=== PATIENT | male | born 1950 | race Caucasian/White ===

== ENCOUNTER 2017-09-20 20:08 | Emergency (ER) | payer OTHER, BC ==
[~2017-09-20] VITALS: Ht 188 cm; Wt 102.0 kg
[~2017-09-20 20:08] MED LIST: ASPI81TA25 PO; CLX/20 PO; LISI-725 PO
[2017-09-20 20:10] VITALS: TEMP 36.6; O2SAT 100; Ht 188 cm; Wt 102.0 kg
[2017-09-20] MEDS ORDERED: SODIUM CHLORIDE 0.9% 1000ML 1,000 ML IV STA (20:38)
--- NOTE | 2017-09-20 21:05 | DIAGNOSTIC IMAGING REPORT ---
CHEST ONE VIEW PORTABLE CLINICAL HISTORY: 66 years-old Male presenting with EVALUATE ALTERED MENTAL STATUS/WEAKNESS. TECHNIQUE: Portable upright AP view of the chest was obtained. COMPARISON: 12/22/2014. FINDINGS: Atherosclerosis of the aortic arch. Cardiac silhouette top normal in size. Minimal vague basilar opacities. No other focal infiltrate. No large effusion or pneumothorax. Degenerative changes of the thoracic spine. Partially visualized anterior cervical fusion hardware. IMPRESSION: 1. Minimal bibasilar opacities likely atelectasis. No commencing evidence of acute cardiopulmonary disease. Electronically signed by: Alfonso Weaver M.D. 09/20/2017 9:04 PM Dictated Date/Time: 09/20/2017 9:03 PM
[2017-09-20] MEDS ORDERED: ZCR40 PO (21:07)
[2017-09-20] MEDS ORDERED: MULT-506 PO (21:07)
[2017-09-20] MEDS ORDERED: LSN/10125 PO (21:07)
[2017-09-20 21:08] LABS: BASO % 0.4 %; BASO ABS # 0.03 K/uL (0-0.2); EOS % 1.4 %; EOS ABS # 0.11 K/uL (0-0.5); HEMATOCRIT 39.4 % (42-52); HEMOGLOBIN 13.6 g/dL (14.0-18.0); IG# 0.03 K/uL (0.00-0.02); LYMPH % 16.8 %; LYMPH ABS # 1.34 K/uL (1.2-3.4); MEAN CELL VOLUME 95.2 fL (80-100); MEAN CORPUSCULAR HEMOGLOBIN 32.9 pg (25-34); MEAN CORPUSCULAR HGB CONC 34.5 g/dl (32-36); MEAN PLATELET VOLUME 8.8 fL (7.4-10.4); MONO % 9.8 %; MONO ABS # 0.78 K/uL (0.11-0.59); NEUT % 71.2 %; NEUT ABS # 5.68 K/uL (1.4-6.5); PLATELET COUNT 277 K/uL (130-400); RED CELL DISTRIBUTION WIDTH CV 14.1 % (11.5-14.5); RED CELL DISTRIBUTION WIDTH SD 48.8 fL (36.4-46.3); WHITE BLOOD COUNT 7.97 K/uL (4.8-10.8)
[2017-09-20 21:22] LABS: PTT PATIENT 23.3 SECONDS (21.0-31.0)
[2017-09-20 21:30] LABS: ALBUMIN 3.2 gm/dl (3.4-5.0); ALT/SGPT 28 U/L (12-78); BLOOD UREA NITROGEN 16 mg/dl (7-18); CALCIUM 8.3 mg/dl (8.5-10.1); CARBON DIOXIDE 25 mmol/L (21-32); CREATININE 0.98 mg/dl (0.60-1.40); GLUCOSE 56 mg/dl (70-99); POTASSIUM 3.8 mmol/L (3.5-5.1); SODIUM 138 mmol/L (136-145)
[2017-09-20 21:41] LABS: ALKALINE PHOSPHATASE 75 U/L (45-117); AST/SGOT 15 U/L (15-37); PHOSPHORUS 3.1 mg/dl (2.5-4.9); TOTAL PROTEIN 6.7 gm/dl (6.4-8.2)
[2017-09-20] MEDS ORDERED: DEXTROSE 50% 50 ML SYR IV ONE (22:30)
--- NOTE | 2017-09-20 23:33 | EMERGENCY ROOM VISIT NOTE ---
History Report prepared by Meka: Zeinab Tavares Under the Supervision of: Dr. Alon Shelton M.D. First contact with patient: 20:24 Chief Complaint: SYNCOPE (NEAR SYNCOPE) Stated Complaint: NEAR SYNCOPE History of Present Illness The patient is a 66 year old white male with a past medical history of AAA repair, septic colon, colostomy who presents to the ED with a cc of an episode of near syncope [employer]. He presents to the ED by EMS. He was drinking his second beer this evening when he began to feel dizzy. His blood pressure was found to be low. Positive diaphoresis. Negative chest pain, SOB, abdominal pain, urinary symptoms, change in bowel movement. The patient had a colonoscopy today. He notes that he did not drink many liquids today. He has not had any problems with his colostomy. No recent medication changes. No history of heart problems. Source of History: patient Onset: [employer] Position: other (global) Quality: other (near syncope) Timing: other (episodic) Associated Symptoms: + diaphoresis, No chest pain, No SOB, No abdominal pain , No urinary symptoms Note: Pt reports dizziness. Review of Systems See HPI for pertinent positives and negatives. A total of ten systems were reviewed and were otherwise negative. Family History No pertinent family history stated. Social History Smoking Status: Current Every Day Smoker Marital Status: Occupation Status: retired Current/Historical Medications Scheduled Aspirin (Aspir-Low), 81 MG PO QAM Citalopram (Citalopram Hydrobromide), 40 MG PO QAM Hctz/Lisinopril (Lisinopril/Hctz 10/12.5 Mg), 1 TAB PO DAILY Multivitamin (Multivitamin), 1 TAB PO DAILY Simvastatin (Simvastatin), 40 MG PO DAILY Allergies Coded Allergies: No Known Allergies (Verified , 09/20/17) Physical Exam Vital Signs Date Time Temp Pulse Resp B/P (MAP) Pulse Ox O2 Delivery O2 Flow Rate FiO2 09/20/17 23:00 78 18 135/86 97 Room Air 09/20/17 22:30 81 22 161/106 97 Room Air 09/20/17 22:01 132/87 09/20/17 22:00 75 19 96 Room Air 09/20/17 21:30 75 20 130/87 95 Room Air 09/20/17 21:02 71 20 142/100 96 Room Air 09/20/17 20:53 78 23 98 09/20/17 20:51 83 09/20/17 20:31 115/68 09/20/17 20:10 100 Room Air 09/20/17 20:10 36.6 84 14 150/100 100 Room Air Physical Exam GENERAL: Awake, alert, well-appearing, NAD HENT: Normocephalic, atraumatic. EYES: Normal conjunctiva. Sclera non-icteric. NECK: Supple. No nuchal rigidity. FROM. RESPIRATORY: CTAB, no rhonchi, wheezing, crackles CARDIAC: RRR, no MRG ABDOMEN: Soft, NTND, BS+. Colostomy in RLQ, bowel extruding, brown stool in the bag. Midline surgical scars. Nonsurgical abdomen. MSK: No chest wall TTP, no LE edema NEURO: GCS 15, CN 2-12 intact, moves all 4s on command SKIN: No rash or jaundice noted. Medical Decision & Procedures ER Provider Diagnostic Interpretation: Xray results as stated below per my and radiologist interpretation: CHEST ONE VIEW PORTABLE CLINICAL HISTORY: 66 years-old Male presenting with EVALUATE ALTERED MENTAL STATUS/WEAKNESS. TECHNIQUE: Portable upright AP view of the chest was obtained. COMPARISON: 12/22/2014. FINDINGS: Atherosclerosis of the aortic arch. Cardiac silhouette top normal in size. Minimal vague basilar opacities. No other focal infiltrate. No large effusion or pneumothorax. Degenerative changes of the thoracic spine. Partially visualized anterior cervical fusion hardware. IMPRESSION: 1. Minimal bibasilar opacities likely atelectasis. No commencing evidence of acute cardiopulmonary disease. Electronically signed by: Alfonso Weaver M.D. 09/20/2017 9:04 PM Dictated Date/Time: 09/20/2017 9:03 PM Laboratory Results 09/20/17 20:45 Red Blood Count 4.14, Mean Corpuscular Volume 95.2, Mean Corpuscular Hemoglobin 32.9, Mean Corpuscular Hemoglobin Concent 34.5, Mean Platelet Volume 8.8, Neutrophils (%) (Auto) 71.2, Lymphocytes (%) (Auto) 16.8, Monocytes (%) (Auto) 9.8, Eosinophils (%) (Auto) 1.4, Basophils (%) (Auto) 0.4, Neutrophils # (Auto) 5.68, Lymphocytes # (Auto) 1.34, Monocytes # (Auto) 0.78, Eosinophils # (Auto) 0.11, Basophils # (Auto) 0.03 09/20/17 20:45 Test 09/20/17 20:45 White Blood Count 7.97 K/uL (4.8-10.8) Red Blood Count 4.14 M/uL (4.7-6.1) Hemoglobin 13.6 g/dL (14.0-18.0) Hematocrit 39.4 % (42-52) Mean Corpuscular Volume 95.2 fL (80-100) Mean Corpuscular Hemoglobin 32.9 pg (25-34) Mean Corpuscular Hemoglobin Concent 34.5 g/dl (32-36) Platelet Count 277 K/uL (130-400) Mean Platelet Volume 8.8 fL (7.4-10.4) Neutrophils (%) (Auto) 71.2 % Lymphocytes (%) (Auto) 16.8 % Monocytes (%) (Auto) 9.8 % Eosinophils (%) (Auto) 1.4 % Basophils (%) (Auto) 0.4 % Neutrophils # (Auto) 5.68 K/uL (1.4-6.5) Lymphocytes # (Auto) 1.34 K/uL (1.2-3.4) Monocytes # (Auto) 0.78 K/uL (0.11-0.59) Eosinophils # (Auto) 0.11 K/uL (0-0.5) Basophils # (Auto) 0.03 K/uL (0-0.2) RDW Standard Deviation 48.8 fL (36.4-46.3) RDW Coefficient of Variation 14.1 % (11.5-14.5) Immature Granulocyte % (Auto) 0.4 % Immature Granulocyte # (Auto) 0.03 K/uL (0.00-0.02) Prothrombin Time 10.3 SECONDS (9.0-12.0) Prothromb Time International Ratio 1.0 (0.9-1.1) Activated Partial Thromboplast Time 23.3 SECONDS (21.0-31.0) Partial Thromboplastin Ratio 0.9 Anion Gap 7.0 mmol/L (3-11) Est Creatinine Clear Calc Drug Dose 92.0 ml/min Estimated GFR () 91.4 Estimated GFR (Non- 78.9 BUN/Creatinine Ratio 16.1 (10-20) Bedside Glucose 62 mg/dl (70-99) Calcium Level 8.3 mg/dl (8.5-10.1) Phosphorus Level 3.1 mg/dl (2.5-4.9) Magnesium Level 2.0 mg/dl (1.8-2.4) Total Bilirubin 0.3 mg/dl (0.2-1) Direct Bilirubin < 0.1 mg/dl (0-0.2) Aspartate Amino Transf (AST/SGOT) 15 U/L (15-37) Alanine Aminotransferase (ALT/SGPT) 28 U/L (12-78) Alkaline Phosphatase 75 U/L (45-117) Troponin I < 0.015 ng/ml (0-0.045) Total Protein 6.7 gm/dl (6.4-8.2) Albumin 3.2 gm/dl (3.4-5.0) Thyroid Stimulating Hormone (TSH) 0.875 uIu/ml (0.300-4.500) Laboratory results reviewed by me Medications Administered Medications (Trade) Dose Ordered Sig/Cassy Route Start Time Stop Time Status Last Admin Dose Admin Sodium Chloride 1,000 ml @ 999 mls/hr Q1H1M STAT IV 09/20/17 20:38 09/20/17 21:38 DC 09/20/17 21:02 999 MLS/HR Dextrose (Dextrose 50% 50ML Syringe) 50 ml NOW ONCE IV 09/20/17 22:30 09/20/17 22:31 DC 09/20/17 22:32 50 ML ECG Indication: syncope Rate (beats per minute): 80 Rhythm: normal sinus Findings: T-wave inversion (questionable in V3), left axis deviation, other ( wide QRS consistent with RBBB) Change: Patient's electrocardiogram interpreted by me. ED Course 2043: The patient was evaluated in room B4B. A complete history and physical exam was performed. 2324: I reevaluated the patient. Discussed results and discharge instructions: He verbalized understanding and agreement. The patient is ready for discharge. Medical Decision The patient is a 66 year old white male with a past medical history of AAA repair, septic colon, colostomy who presents to the ED with a cc of an episode of near syncope [employer]. Differential diagnosis: Etiologies such as vasovagal event, infection, hypoglycemia, electrolyte abnormalities, cardiac sources, intracerebral event, toxicologic, neurologic, as well as others were entertained. Patient was seen and evaluated the bedside. Patient did have a prior AAA status post repair and colectomy: Status post colectomy and colostomy. Patient purportedly had a colonoscopy completed this morning. Patient did not eating or drinking either pre-or post procedure. Patient did have a small sandwich and stated that he was having is secondary to friend's house which point he became diaphoretic and lightheaded. The neighbor to check his blood pressure and stated that it was low so was brought in here. Patient did have blood work completed in his blood sugar was less than 60. Patient was given an amp of D50 as well as a meal. Patient's blood work was fairly unremarkable with the exception of the blood glucose. Patient's EKG was unchanged. Patient has no abdominal pain. Patient's colostomy shows well-appearing intestine that he states does protrude from the site. It is reducible. Patient has normal looking stool in the bag. Patient was able tolerate by mouth and a repeat blood glucose was 192. Patient was feeling well and no other symptomatically complaints. Patient was deemed suitable for outpatient follow-up and treatment at this time. Patient was given strict follow-up, discharge, and return precautions. All questions were answered. Patient was deemed suitable for outpatient follow-up at this time. Patient agreed with the plan of care and was safely discharged home. The chart was completed utilizing [employer] Speech voice recognition software. Grammatical errors, random word insertions, pronoun errors, and incomplete sentences are an occasional consequence of this system due to software limitations, ambient noise, and hardware issues. Any formal questions or concerns about the content, text, or information contained within the body of this dictation should be directly addressed to the physician for clarification. Medication Reconcilliation Current Medication List: was personally reviewed by me Blood Pressure Screening Patient's blood pressure: Elevated blood pressure Blood pressure disposition: Elevated BP felt to be situational Impression Primary Impression: Hypoglycemia Additional Impressions: Weakness Anemia Hypocalcemia Scribe Attestation The scribe's documentation has been prepared under my direction and personally reviewed by me in its entirety. I confirm that the note above accurately reflects all work, treatment, procedures, and medical decision making performed by me. Departure Information Dispostion Home / Self-Care Referrals Rylan Mixon M.D. (PCP) Patient Instructions ED Hypocalcemia, Hypoglycemia, [facility] Additional Instructions Please return to the emergency department if you have worsening or recurrent symptoms not amenable to at-home treatment. Please call for a follow-up appointment with her primary care physician. Please take your medications as prescribed. If you have other concerns and/or complaints please feel free to also call your primary care physician's office or return the ED for further evaluation, management, and treatment. Take your medications as prescribed. You have been examined and treated today on an emergency basis only. This is not a substitute for, or an effort to provide, complete comprehensive medical care. It is impossible to recognize and treat all injuries or illnesses in a single emergency department visit. It is therefore important that you follow up closely with [facility], your PCP, and/or your specialist(s). Call as soon as possible for an appointment. Thank you for your time and consideration. I look forward to speaking with you again soon. Please don't hesitate to call us if you have any questions. Problem Qualifiers Additional Impressions: Anemia Anemia type: unspecified type Qualified Codes: D64.9 - Anemia, unspecified
[2017-09-20 23:44] VITALS: BP 144/94; PULSE 78; O2SAT 98
== END 2017-09-20 23:44 | disposition home or self-care (01) ==
LOC: C.EDB 20:08 → EDBD 20:08 → C.EDB 23:44
DX: E16.2 Hypoglycemia, unspecified (principal); R53.1 Weakness; D64.9 Anemia, unspecified; E83.51 Hypocalcemia; Z93.3 Colostomy status; I71.4 Abdominal aortic aneurysm, without rupture; F17.210 Nicotine dependence, cigarettes, uncomplicated; Z79.82 Long term (current) use of aspirin; Z79.899 Other long term (current) drug therapy

== ENCOUNTER 2018-08-13 10:23 | Inpatient (IN) ==
--- NOTE | 2018-07-24 11:34 | Anesthesiology Consultation ---
Date of Service July 24, 2018 Assessment & Plan (1) Encounter for pre-operative examination: Plan: PCP clearance 07/25/2018: Patient is having no active cardiac or pulmonary symptoms. He is not limited by chest pains or shortness of breath. His had a nonischemic dobutamine stress echo in January of 2017. No concerning EKG changes since that time. He reports that he can climb 2 flights of steps and is only limited in his activity with back pain and leg pain. He does have a long smoking history although he has quit. He does have known peripheral vascular disease. His age in medical problems do put him at risk for complication of the surgery. He is aware of this. He has not been taking his simvastatin and I suggest that he restart that prior to the surgery. I have no other changes to make to his medication regimen. lt is fine with me to proceed with surgery with risks known. Chart Review Chart Review: Acceptable Risk for Surgery and Patient seen in Pre Admission Testing Teaching & Discussion Instructed NPO after midnight before surgery, except medications with 15 cc of water. Medication instructions provided according to the PAT guidelines. History Surgery Operation Date: 08/15/18 10:05 Proposed Procedures p L3-S1 Decompression and Fusion - Chay Kirkland DO Height/Weight Height: 6 ft 3 in Weight: 101.6 kg Allergies Allergy/AdvReac Type Severity Reaction Status Date / Time No Known Allergies Allergy Verified 07/22/18 08:54 Medications Home Medications Medication Instructions Recorded Confirmed Last Taken aspirin 81 mg PO QAM 07/22/18 07/22/18 Unknown citalopram 40 mg PO QAM 07/22/18 07/22/18 Unknown ibuprofen 800 mg PO QID PRN 07/22/18 07/22/18 Unknown lisinopril-hydrochlorothiazide 1 tab PO QAM 07/22/18 07/22/18 Unknown multivitamin 1 tab PO QAM 07/22/18 07/22/18 Unknown potassium 99 mg PO QAM 07/22/18 07/22/18 Unknown tramadol 50 mg PO Q6H PRN 07/22/18 07/22/18 Unknown albuterol sulfate 1 puff INHALATION Q6H PRN 07/24/18 07/24/18 Unknown Past Medical History Medical History COPD (chronic obstructive pulmonary disease) "albuterol once every couple weeks" H/O aortic aneurysm High cholesterol History of depression Hypertension Lumbar radiculopathy, right RBBB (right bundle branch block with left anterior fascicular block) Spinal stenosis Past Surgical History Surgical History H/O colonoscopy H/O exploratory laparotomy Ischemic colitis and bowel perf 2/2 AAA repair History of AAA (abdominal aortic aneurysm) repair January 2017 - [facility] Surgery was 02/11, and patient remained intubated until 02/17. He required vasopressor support post-op and received multiple blood transfusions History of colon resection Left hemicolectomy with wound vac; taken back to OR same day for colostomy creation (02/25/2017). Post AAA repair had ischemic colitis/bowel perf became septic with bowel infection. History of colostomy reversal 11/2017 - [facility] Hx of cervical spine surgery Hx of hernia repair x 3 - 2 inguinal and 1 umbilical Past Anesthesia History No Hx of Anesthesia Complications and No Family Hx of Anesthesia Complications Patient was hospitalized and had multiple surgeries at [facility] for AAA complicated by bowel perf/ischemic colitis/sepsis. He had multiple prolonged intubations, and required speech therapy and otolaryngology after his extubations for prolonged hoarseness. History of PONV No Motion Sickness Screening History of Motion Sickness: No Social History Smoking Status: Former smoker Smoking cigarettes per day: 2ppd x 30yrs Do You Dip or Chew Tobacco: No Smoking End Date: 01/2017 Hx Alcohol Use: Yes Alcohol type: beer, wine and hard liquor alcohol intake frequency: a few times a month Hx Substance Use: Yes substance use type: marijuana Last Used Substance: Days (ago) (1 week ago) Exercise / Class Metabolic Activity II 4-5 Yardwork/Stairs/Walk up hill (no CP or SOB with stairs, but limited activity 2/2 pain) Review of Systems Pt denies any recent chest pain, shortness of breath, palpitations, fever or URI. +mild chronic cough Physical Exam Vital Signs BP: 143/87 P: 70 SPO2: 97%RA T: 98.0 R: 17 ENMT Mouth: + dentures (upper partial) and + dental restorations (upper front crown) ; no chipped teeth and no loose teeth Thyromental Distance: > or= 3.5 Finger Breadths (4) Mallampati Class: I Neck normal visual inspection; neck extension not limited Respiratory normal respiratory effort Auscultation: lungs clear to auscultation bilaterally Cardiovascular Rate/Rhythm: regular rate and regular rhythm Heart Sounds: no murmur Vessels: no carotid bruit distant Testing Electrocardiogram Date: 10/31/17 Findings: + NSR @ (60) RBBB. LAFB. Bifascicular block. Compared to EKG from 03/01/17, QRS duration has increased. Chest X-Ray Date: 09/20/17 Minimal bibasilar opacities likely atelectasis. No commencing evidence of acute cardiopulmonary disease. Echocardiogram Date: 02/24/17 EF: >70% Limited transthoracic echocardiogram performed by sales officer to assess cardiac function in the setting of septic shock. Hyperdynamic left ventricular systolic function. Incomplete assessment of left ventricular regional wall motion, right ventricle, pericardium and valvular function. Stress Test Date: 02/01/17 Type: nuclear Resting EF: 60% Gated SPECT imaging reveals normal myocardial thickening and wall motion. Lexiscan nuclear cardiac stress test negative for ischemia. Laboratory Results 07/24/18 11:06 07/24/18 11:06 Blood Type O Positive 07/24/18 11:06 Antibody Screen NEGATIVE 07/24/18 11:06 PT 9.7 Seconds (9.0-12.0) 07/24/18 11:06 INR 0.9 (0.9-1.1) 07/24/18 11:06 APTT 25.3 Seconds (21.0-31.0) 07/24/18 11:06 Urine Color Dark Yellow 07/24/18 Unknown Urine Appearance Clear (Clear) 07/24/18 Unknown Urine pH 6.0 (4.5-7.5) 07/24/18 Unknown Ur Specific Varina 1.030 (1.000-1.030) 07/24/18 Unknown Urine Protein Negative (Negative) 07/24/18 Unknown Urine Glucose (UA) Negative (Negative) 07/24/18 Unknown Urine Ketones Trace (Negative) H 07/24/18 Unknown Urine Nitrite Negative (Negative) 07/24/18 Unknown Ur Leukocyte Esterase Negative (Negative) 07/24/18 Unknown
--- NOTE | 2018-07-24 11:41 | PAT Medication Instructions ---
Medication Instructions Date of Service July 24, 2018 Home Medications aspirin 81 mg PO QAM citalopram 40 mg PO QAM ibuprofen 800 mg PO QID PRN lisinopril-hydrochlorothiazide 1 tab PO QAM multivitamin 1 tab PO QAM potassium 99 mg PO QAM tramadol 50 mg PO Q6H PRN albuterol sulfate 1 puff INHALATION Q6H PRN ASK your surgeon for instructions ibuprofen 800 mg PO QID PRN DO NOT take the morning of surgery lisinopril-hydrochlorothiazide 1 tab PO QAM multivitamin 1 tab PO QAM potassium 99 mg PO QAM Take morning of surgery With a small sip of water, OTHERWISE NOTHING TO EAT OR DRINK AFTER MIDNIGHT: aspirin 81 mg PO QAM citalopram 40 mg PO QAM tramadol 50 mg PO Q6H PRN (if needed, may be taken up to four hours before surgery) albuterol sulfate 1 puff INHALATION Q6H PRN (if needed, and please bring with you to the hospital) Take evening before surgery tramadol 50 mg PO Q6H PRN (if needed) albuterol sulfate 1 puff INHALATION Q6H PRN (if needed) Other Notes If you have any questions please call us at [phone] or [phone] or [phone] or [phone]
[2018-07-24 11:57] LABS: Basophils # (auto) 0.03 K/uL (0-0.2); Basophils % (auto) 0.4 %; Eosinophils # (auto) 0.19 K/uL (0-0.5); Eosinophils % (auto) 2.3 %; Hemoglobin 15.6 g/dL (14.0-18.0); Immature Granulocytes # (auto) 0.04 K/uL (0.00-0.02); Immature Granulocytes % (auto) 0.5 %; Lymphocytes # (auto) 2.29 K/uL (1.2-3.4); Lymphocytes % (auto) 27.4 %; Mean Corpuscular Hgb Conc 33.9 g/dL (32-36); Mean Platelet Volume 9.3 fL (7.4-10.4); Monocytes # (auto) 0.77 K/uL (0.11-0.59); Monocytes % (auto) 9.2 %; Neutrophils # (auto) 5.05 K/uL (1.4-6.5); Neutrophils % (auto) 60.2 %; Platelet Count 310 K/uL (130-400); RDW Coefficient of Variation 13.7 % (11.5-14.5); RDW Standard Deviation 47.6 fL (36.4-46.3); Red Blood Count 4.84 M/uL (4.7-6.1); White Blood Count 8.37 K/uL (4.8-10.8)
[2018-07-24 12:09] LABS: BUN Creatinine Ratio 21.7 (10-20); Calcium 8.9 mg/dl (8.5-10.1); Creatinine Clr Calc Pharmacy 90.1 ml/min; Est GFR (African American) 88.6; Est GFR (Non-African American) 76.5; Potassium 4.5 mmol/L (3.5-5.1)
[2018-07-24 12:11] LABS: Appearance Urine Clear (Clear); Bilirubin Urine Negative (Negative); Color Urine Dark Yellow; Glucose Urine UA Negative (Negative); Ketones Urine Trace (Negative); Leukocyte Esterase Urine Negative (Negative); Nitrite Urine Negative (Negative); Protein Urine Negative (Negative); Urobilinogen Urine Negative (Negative)
[2018-07-24 12:12] LABS: INR 0.9 (0.9-1.1); Partial Thromboplastin Time 25.3 Seconds (21.0-31.0); Prothrombin Time 9.7 Seconds (9.0-12.0)
[~2018-08-13 10:23] MED LIST changes: +ACETAMINOPHEN 500 MG TAB PO SCH; -ASPI81TA25 PO; +CEFAZOLIN 2000MG 2,000 MG/15 ML SYR IV SCH; -CLX/20 PO; +CeleBREX 200 MG CAP PO SCH; +GABAPENTIN 300 MG PO SCH; +HYDROmorphone INJ 2 MG/ML SYR/VIAL ONE; -LISI-725 PO; +LR 15ML/HR IV SCH; +MIDAZOLAM HCL 1 MG/ML 2ML VIAL ONE; +fentaNYL citrate 100 MCG/2 ML VIAL ONE
--- NOTE | 2018-08-13 12:52 | History & Physical Report ---
Date of Service August 13, 2018 Assessment & Plan (1) Neurogenic claudication due to lumbar spinal stenosis: L3-S1 decompression and fusion Present on Admission?: Yes History of Present Illness Chief Complaint: Back and leg pain Primary Care Provider: Rylan Mixon This is a 67-year-old male with chronic persistent back and bilateral leg pain. He is failed extensive course of nonoperative care and is here for surgical intervention. Allergies Allergy/AdvReac Type Severity Reaction Status Date / Time No Known Allergies Allergy Verified 07/22/18 08:54 Home Medications Home Medications Medication Instructions Recorded Confirmed Type aspirin 81 mg PO QAM 07/22/18 08/13/18 History citalopram 40 mg PO QAM 07/22/18 08/13/18 History ibuprofen 800 mg PO QID PRN 07/22/18 08/13/18 History lisinopril-hydrochlorothiazide 1 tab PO QAM 07/22/18 08/13/18 History multivitamin 1 tab PO QAM 07/22/18 07/22/18 History potassium 99 mg PO QAM 07/22/18 07/22/18 History tramadol 50 mg PO Q6H PRN 07/22/18 08/13/18 History albuterol sulfate 1 puff INHALATION Q6H PRN 07/24/18 08/13/18 History Past Med/Surg History Social History Current Living Situation: Spouse Other Information That Helps Us Care for You: No Feels Safe at Home: Yes Safety Concerns: Feels Safe At This Time Smoking Status: Former smoker Cigarettes per Day: 2ppd x 30yrs Do You Dip or Chew Tobacco: No Smoking End Date: 01/2017 Hx Alcohol Use: Yes Alcohol type: beer, wine and hard liquor Alcohol Intake Frequency: a few times a month Hx Substance Use: Yes substance use type: marijuana Last Used Substance: Days ( ago) (1 week ago) Beliefs That Will Affect Care: None Preferred Language: American Communication Ability: Effective Physical Exam 2 Vital Signs (Past 24 Hours): Last Vital Signs Temp 36.5 C 08/13/18 11:15 Pulse 60 08/13/18 11:15 Resp 16 08/13/18 11:15 BP 165/98 H 08/13/18 11:15 Pulse Ox 96 08/13/18 11:15 Results & Data Medications Administered Acetaminophen (Tylenol) 1,000 mg PO PREOP ANASTASIIA Stop: 08/13/18 18:00 Last Admin: 08/13/18 11:52 Dose: 1,000 mg Celecoxib (Celebrex) 200 mg PO PREOP ANASTASIIA Stop: 08/13/18 18:00 Last Admin: 08/13/18 11:52 Dose: 200 mg Gabapentin (Neurontin) 300 mg PO PREOP ANASTASIIA Stop: 08/13/18 18:00 Last Admin: 08/13/18 11:53 Dose: 300 mg Lactated Ringer's (Lr) 1,000 mls @ 15 mls/hr IV .Q24H ANASTASIIA Stop: 08/14/18 05:59 Last Admin: 08/13/18 11:53 Dose: 15 mls/hr
[2018-08-13] MEDS ORDERED: BUPIVACAINE/EPINEPHRINE 0.5% MPF 1:200,000 30 ML VIAL ONE (12:56)
[2018-08-13] MEDS ORDERED: BACITRACIN INJ 50,000 UNIT VIAL ONE (12:56)
[2018-08-13] MEDS ORDERED: fentaNYL citrate 100 MCG/2 ML VIAL ONE ×3 (13:43→13:53)
[2018-08-13] MEDS ORDERED: PHENYLEPHRINE HCL 10 MG/ML VIAL ONE (13:58)
[2018-08-13] MEDS ORDERED: ONDANSETRON INJ 2 MG/ML 2 ML VIAL ONE (13:58)
[2018-08-13] MEDS ORDERED: LIDOCAINE HCL 2% 2 ML VIAL/AMP(20MG/ML) INFIL ONE (13:58)
[2018-08-13] MEDS ORDERED: PROPOFOL IV EMULSION 10 MG/ML 20 ML VIAL IV ONE (13:58)
[2018-08-13] MEDS ORDERED: GLYCOPYRROLATE 0.2 MG/ML VIAL ONE (13:58)
[2018-08-13] MEDS ORDERED: ePHEDrine sulfate 50 MG/ML SYR ONE (13:58)
[2018-08-13] MEDS ORDERED: ROCURONIUM BROMIDE 10 MG/ML 5 ML VIAL ONE (13:58)
[2018-08-13] MEDS ORDERED: NEOSTIGMINE METHYLSULFATE 1 MG/ML 10ML VIAL ONE (13:58)
[2018-08-13] MEDS ORDERED: DEXAMETHASONE SOD INJ 4 MG/ML VIAL ONE (13:58)
[2018-08-13] MEDS ORDERED: HYDROmorphone INJ 2 MG/ML SYR/VIAL ONE (14:01)
[2018-08-13] MEDS ORDERED: FLOSEAL HEMOSTATIC MATRIX 10ML TOP ONE (14:04)
--- NOTE | 2018-08-13 16:25 | Operative Report ---
Post Operative Report Date of Surgery August 13, 2018 Pre & Post Diagnosis Operation Date: 08/13/18 12:55 Pre-Op Diagnosis: Lumbar spinal stenosis with neurogenic claudication herniated nucleus pulposus and spondylolisthesis L5-S1 Post-Op Diagnosis: Same Procedure Operation Date: 08/13/18 12:55 Actual Procedures #1 lumbar decompression medial facetectomy foraminotomy L3-4 L4-5 L5-S1. #2 posterior spinal fusion L3-4 L4-5 L5-S1. #3 placement posterior segmental instrumentation L3-4 L4-5 L5-S1. #4 interbody fusion L5-S1. #5 placement of titanium 9 x 26 mm cage at L5-S1 per #6 placement of local autograft in the posterior lateral gutters. #7 placement infuse collagen sponge mass graft in the posterior gutters and ostial amp and interbody space. Surgeon Chay Kirkland DO Compliance Officer None Estimated Blood Loss 500 Findings Consistent with Post-Op Diagnosis Specimens None Description of Procedure Patient was met with preoperatively case discussed all questions addressed. After informed consent obtained patient was taken to the operative suite underwent intubation and placed in a prone position the Ramesh table on top of the Giovani frame. All bony prominences well-padded eyes inspected to ensure no external pressure placed upon the bed at this point the lumbar spine was prepped and draped in the normal sterile fashion. Sharp dissection with the assistance of Bovie cautery was performed down to and exposing the lamina and transverse processes of L3-L4-L5 and sacral ala bilaterally. Obvious pars defect at 5 1 was noted bilaterally. Complete laminectomy of L5 L4 and L3 was performed including medial facetectomies foraminotomies addressing significant stenosis was also addressed to herniated free fragment of disc from the 3 4 level along the L for pedicle on the right. After this was removed pedicle screws were placed in L3-L4 L5-S1 levels bilaterally with assistance of fluoroscopy and through a transforaminal approach and a right complete discectomy of L5-S1 was performed in plate coated to subcortical bleeding bone and a 9 x 26 mm titanium cage filled with osteo-amp bone graft tapped in position. Process trevor was then contoured and locked in position bilaterally. The transverse processes of L3-L4-L5 and sacral ala bur to subcortical bleeding bone. Infuse collagen sponge mass graft local autograft placed in the posterior gutters. 15 round DIRK drain inserted. Incision was then closed with 1 Vicryl fascia 2-0 Vicryl subcutaneously and 4 Monocryl for Fransen closure Steri-Strip sterile dressing was placed. Patient will continue to PACU stable condition. I attest to the content of the Intraoperative Record and any orders documented therein. Any exceptions are noted below.
--- NOTE | 2018-08-13 16:25 | Fluoroscopy Report ---
FL lumbar spine 2-3V CLINICAL HISTORY: 67 years-old Male presenting with L3-S1 DECOMPRESSION AND FUSION. TECHNIQUE: 3 fluoroscopic image(s) recorded as part of an intraoperative procedure. COMPARISON: None. FINDINGS/IMPRESSION: Posterior bilateral transpedicular screw and trevor fixation of L3-S1 with L5-S1 interbody spacer. Anter olisthesis of L5 on S1. Laminectomy defects from L3 to L5. Please see surgical report for further details. Fluoroscopy dosage (mGy): 2529. Fluoroscopy time: 29.1 seconds. Number or time of fluoroscopic spot images: 0. Electronically signed by: Alfonso Weaver M.D. 08/13/2018 4:23 PM
[2018-08-13] MEDS: HYDROmorphone INJ 2 MG/ML SYR/VIAL IV PRN ×4 (16:38→17:00)
[2018-08-13] MEDS ORDERED: BISACODYL 10 MG SUPP PR PRN (17:30)
[2018-08-13] MEDS ORDERED: MAGNESIUM HYDROXIDE SUSP 30 ML UDC PO PRN (17:30)
[2018-08-13] MEDS ORDERED: ALBUTEROL HFA 8 GM INHALER INH PRN (17:30)
[2018-08-13] MEDS ORDERED: ONDANSETRON INJ 2 MG/ML 2 ML VIAL IV PRN (17:30)
[2018-08-13] MEDS ORDERED: SOD PHOSPHATE/SOD BIPHOSPHATE ENEMA 132 ML BTL PR PRN (17:30)
[2018-08-13] MEDS ORDERED: DO NOT ADMINISTER FLU VACCINE PRN (17:30)
[2018-08-13] MEDS ORDERED: DO NOT ADMINISTER PNEUMOCOCCAL VACCINE PRN (17:30)
[2018-08-13] MEDS ORDERED: LORazepam 0.5 MG/1 ML VIAL IV PRN (17:30)
[2018-08-13] MEDS ORDERED: ONDANSETRON 4 MG TAB PO PRN (17:30)
[2018-08-13] MEDS ORDERED: HYDROmorphone INJ 0.5 MG/0.5 ML SYR IV PRN (17:30)
[2018-08-13] MEDS ORDERED: METOCLOPRAMIDE HCL INJ 5 MG/ML 2 ML VIAL IV PRN (17:30)
[2018-08-13] MEDS ORDERED: ALUMINUM/MAGNESIUM SUSP 30 ML UDC PO PRN (17:30)
[2018-08-13] MEDS ORDERED: LORazepam 0.5 MG TAB PO PRN (17:30)
[2018-08-13] MEDS ORDERED: FAMOTIDINE 20 MG TAB PO PRN (17:30)
[2018-08-13] MEDS ORDERED: PROMETHAZINE HCL 12.5 MG in SODIUM CHLORIDE 0.9% 50 ML IV PRN (17:30)
[2018-08-13] MEDS: CEFAZOLIN 2000MG 2,000 MG/15 ML SYR IV SCH (18:12)
[2018-08-13] MEDS ORDERED: INFLUENZA VACCINE HIGH DOSE 65+ 0.5 ML SYR IM ONE (18:45)
[2018-08-13] MEDS ORDERED: INFLUENZA ADMINISTRATION CHARGE ONE (18:45)
[2018-08-13] MEDS: KETOROLAC TROMETHAMINE 15 MG/ML VIAL IV SCH (19:16)
[2018-08-13] MEDS: LACTATED RINGER'S 1,000 ML IV SCH ×2 (19:17→23:51)
[2018-08-13] MEDS: OXYCODONE HCL IR 5 MG TAB (IMMEDIATE RELEASE) PO PRN (19:47)
[2018-08-13] MEDS ORDERED: ACETAMINOPHEN 1,000 MG/100 ML VIAL IV PRN (20:00)
[2018-08-13] MEDS ORDERED: ACETAMINOPHEN 500 MG TAB PO PRN (20:00)
[2018-08-13] MEDS: DOCUSATE SODIUM/SENNA 50/8.6MG TAB PO SCH (21:10)
--- NOTE | 2018-08-13 21:25 | Consultation ---
Date of Consultation August 13, 2018 Assessment & Plan (1) History of spinal surgery: (2) Neurogenic claudication due to lumbar spinal stenosis: This is a 67yo M with a PMH of HTN, bifascicular block on EKG, h/o AAA repair and lumbar stenosis with neurogenic claudication with is POD#0 s/p lumbar decompression fusion of L3-S1 by Dr. Kirkland. -Pt is doing well post-operatively -Per ortho for pain control, wound care, anticoagulation and activities -Monitor H&H (EBL: 500cc, DIRK output: 260). Baseline hgb of 15.6 on 07/24/18 -Continue incentive spirometry, PT/OT when appropriate (3) Hypertension: Normotensive. Did not take lisinopril-hctz pre-operatively. Plan to resume tomorrow -Monitor kidney function on BMP. No PMH of CKD (4) MDD (major depressive disorder): Continue citalopram (5) PVD (peripheral vascular disease): Continue simvastatin PCP: Oral Dispo: Per primary service. Patient seen in collaboration with Dr. Lacy. Please see addendum. Will be followed by Dr. Rosario for remainder of admission. Supervising Physician Co-Signing Physician Notes Agree with above consult note. Briefly 67M is s/p back surgery. tolerated procedure fine. Ambulated in room ok. Denies any pain. No sob. Afebrile.No nausea. Hemodynamics stable. p/e Ge not in distress Cvs s1 and s2 heard no murmurs Rs cta b/l no added sounds Abd benign Lead Pastor non focal Ext no edema musculoskeletal s/p back surgery dressing intact a/p S/p Back surgery doing fine management as per ortho HTN to start home meds in am will monitor History of Present Illness Reason for Consultation: Post op medical management Attending Physician: Chay Kirkland, DO History of Present Illness This is a 67yo M with a PMH of HTN, bifascicular block on EKG, h/o AAA repair and lumbar stenosis with neurogenic claudication with is POD#0 s/p lumbar decompression fusion of L3-S1 by Dr. Kirkland. Patient is feeling well postoperatively. Endorses 2/10 back pain and no numbness or paresthesias in bilateral legs. Is tolerating a regular diet without nausea or vomiting. Denies any fever, chills, lightheadedness, headache, chest pain, palpitations, shortness of breath, abdominal pain, dysuria. No bowel movement yet postoperatively. PCP is Dr. Mixon. Was recently started on simvastatin due to history of PVD. Denies any history of OR, DVT/PE or stroke. Had a AAA repair [place] [facility] in [place] with postop complication requiring lysis of bowel adhesion and colostomy formation. Colostomy was reversed and patient underwent hernia repair in November 2017. Allergies Allergy/AdvReac Type Severity Reaction Status Date / Time No Known Allergies Allergy Verified 07/22/18 08:54 Home Medications Home Medications Medication Instructions Recorded Confirmed Type aspirin 81 mg PO QAM 07/22/18 08/13/18 History citalopram 40 mg PO QAM 07/22/18 08/13/18 History ibuprofen 800 mg PO QID PRN 07/22/18 08/13/18 History tramadol 50 mg PO Q6H PRN 07/22/18 08/13/18 History albuterol sulfate 1 puff INHALATION Q6H PRN 07/24/18 08/13/18 History lisinopril-hydrochlorothiazide 1 tab PO DAILY 08/13/18 08/13/18 History simvastatin 40 mg PO HS 08/13/18 08/13/18 History Patient History Medical History MDD (major depressive disorder) (Chronic) PVD (peripheral vascular disease) (Chronic) Hypertension (Chronic) COPD (chronic obstructive pulmonary disease) (Chronic) "albuterol once every couple weeks" 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 He required vasopressor support post-op and received multiple blood transfusions History of colon resection (Resolved) Left hemicolectomy with wound vac; taken back to OR same day for colostomy creation (02/25/2017). Post AAA repair had ischemic colitis/bowel perf became septic with bowel infection. History of colostomy reversal (Resolved) 11/2017 - [facility] Hx of hernia repair (Resolved) x 3 - 2 inguinal and 1 umbilical Hx of cervical spine surgery (Resolved) H/O exploratory laparotomy (Resolved) Ischemic colitis and bowel perf 2/2 AAA repair Family History Other Alzheimer disease Heart disease Social History Current Living Situation: Spouse Other Information That Helps Us Care for You: No Feels Safe at Home: Yes Safety Concerns: Feels Safe At This Time Smoking Status: Former smoker Cigarettes per Day: 2ppd x 30yrs Do You Dip or Chew Tobacco: No Smoking End Date: 01/2017 Hx Alcohol Use: Yes Alcohol type: beer, wine and hard liquor Alcohol Intake Frequency: a few times a month Hx Substance Use: Yes substance use type: marijuana Last Used Substance: Days ( ago) (1 week ago) Beliefs That Will Affect Care: None Preferred Language: Czech Communication Ability: Effective Review of Systems Ten systems reviewed and negative except as noted in the HPI. Physical Exam 2 Vital Signs (Past 24 Hours): Last Vital Signs Temp 36.3 C L 08/13/18 20:29 Pulse 85 08/13/18 20:29 Resp 19 08/13/18 20:29 BP 120/76 08/13/18 20:29 Pulse Ox 93 08/13/18 20:29 Physical Exam: General Appearance: WD/WN, no apparent distress, resting comfortably Head: normocephalic, atraumatic Eyes: normal inspection, PERRL, EOMI ENT: hearing grossly normal, pharynx normal (moist mucous membranes) Neck: supple, no JVD, no adenopathy Respiratory/Chest: lungs clear to auscultation. No wheezes, rales or rhonci. No respiratory distress or accessory muscle use Cardiovascular: regular rate, rhythm, no murmur, normal peripheral pulses Abdomen/GI: normal bowel sounds, soft, non-tender to palpation : Ba catheter draining light yellow urine Extremities/Musculoskelatal: Lumbosacral surgical dressing clean, dry, intact. DIRK drain with sanguinous output. No calf tenderness, normal capillary refill, no pedal edema. SCDs bilaterally Neurologic/Psych: alert, normal mood/affect, oriented x 3, Strength intact in all 4 quadrants Skin: normal color, warm/dry Results & Data Laboratory Results Pre-operative labs (07/24): Hgb: 15.6 Creatinine: 1
[2018-08-14] MEDS: KETOROLAC TROMETHAMINE 15 MG/ML VIAL IV SCH ×3 (00:07→12:26)
[2018-08-14] MEDS: CEFAZOLIN 2000MG 2,000 MG/15 ML SYR IV SCH (02:02)
[2018-08-14] MEDS: OXYCODONE HCL IR 5 MG TAB (IMMEDIATE RELEASE) PO PRN ×2 (02:04→19:14)
[2018-08-14] MEDS: POLYETHYLENE (MIRALAX) 17 GM PACK PO SCH ×3 (05:25→17:00)
[2018-08-14 06:02] LABS: Hematocrit (blood only) 36.4 % (42-52); Hemoglobin 12.2 g/dL (14.0-18.0); Mean Corpuscular Hgb Conc 33.5 g/dL (32-36); Mean Corpuscular Volume 95.5 fL (80-100); Mean Platelet Volume 8.9 fL (7.4-10.4); Platelet Count 248 K/uL (130-400); RDW Coefficient of Variation 13.3 % (11.5-14.5); RDW Standard Deviation 46.3 fL (36.4-46.3); Red Blood Count 3.81 M/uL (4.7-6.1); White Blood Count 13.33 K/uL (4.8-10.8)
[2018-08-14 06:35] LABS: BUN Creatinine Ratio 25.7 (10-20); Calcium 7.7 mg/dl (8.5-10.1); Creatinine Clr Calc Pharmacy 77.9 ml/min; Est GFR (African American) 81.7; Est GFR (Non-African American) 70.5
[2018-08-14 06:52] LABS: Immature Granulocytes # (auto) 0.03 K/uL (0.00-0.02); Immature Granulocytes % (auto) 0.2 %; Lymphocytes # (auto) 1.29 K/uL (1.2-3.4); Lymphocytes % (auto) 9.7 %; Monocytes # (auto) 1.05 K/uL (0.11-0.59); Monocytes % (auto) 7.9 %; Neutrophils # (auto) 10.96 K/uL (1.4-6.5); Neutrophils % (auto) 82.2 %
[2018-08-14] MEDS: MULTIVITAMIN TAB PO SCH (08:56)
[2018-08-14] MEDS: CITALOPRAM 40 MG TAB PO SCH (08:56)
[2018-08-14] MEDS: ASPIRIN 81 MG ECTAB PO SCH (08:56)
[2018-08-14] MEDS ORDERED: LISINOPRIL/HCTZ 10/12.5MG TAB PO SCH (09:00)
[2018-08-14] MEDS: LISINOPRIL/HCTZ 20/12.5MG 1 TAB TAB PO SCH (09:00)
--- NOTE | 2018-08-14 10:49 | Anesthesiology Progress Note ---
Date of Service August 14, 2018 Anesthesia Post Procedure Vital Signs Vital Signs: Temp Pulse Pulse Resp BP Pulse Ox 08/14/18 07:54 36.5 C 79 18 162/95 H 97 08/14/18 06:51 158/98 H 08/14/18 03:21 36.5 C 72 17 172/107 H 97 08/13/18 23:23 36.4 C L 81 17 133/90 93 08/13/18 20:29 36.3 C L 85 19 120/76 93 08/13/18 19:41 94 08/13/18 19:30 36.3 C L 87 15 115/78 96 08/13/18 18:27 36.5 C 89 18 129/90 96 08/13/18 18:00 36.4 C L 84 16 144/90 H 95 08/13/18 17:30 37.0 C 75 15 135/89 96 08/13/18 17:20 36.4 C L 76 13 133/93 95 08/13/18 17:10 75 13 148/92 H 94 08/13/18 17:00 74 18 140/91 98 08/13/18 16:50 75 13 152/99 H 99 08/13/18 16:40 73 22 159/104 H 100 08/13/18 16:31 36.4 C L 76 16 151/90 H 100 08/13/18 11:15 36.5 C 60 16 165/98 H 96 Pain Intensity Lower Medial Back: Pain Intensity: 5 Notes Mental Status: alert / awake / arousable and participated in evaluation Patient Amnestic to Procedure: Yes Nausea / Vomiting: adequately controlled Pain: adequately controlled Airway Patency, RR, SpO2: stable & adequate BP & HR: stable & adequate Hydration State: stable & adequate Anesthetic Complications: no major complications apparent and Pt Satisfied with anesthetic care
--- NOTE | 2018-08-14 11:11 | Hospitalist Progress Note ---
Date of Service August 14, 2018 Assessment & Plan (1) Neurogenic claudication due to lumbar spinal stenosis: POD#1 s/p lumbar decompression fusion of L3-S1 by Dr. Kirkland. EBL 500ml -pain/wound management per ortho -PT/OT as directed by ortho -Monitor H&H, renal function, electrolytes -Baseline hgb of 15.6 on 07/24/18 -Continue incentive spirometry (2) Acute blood loss anemia: -H/H 12.2/36.4, baseline hgb 15 -follow H/H (3) GERD (gastroesophageal reflux disease): -episode of indigestion last evening -recommend PPI daily while on anti-inflammatory and narcotics, approx 2-4 weeks -Pepcid/[id number] prn (4) Leucocytosis: -wbc 13.3 -was given pre-operative dexamethasone -no s/sx of infection -monitor cbc (5) Hypertension: -blood pressure elevated this a.m, oral antihypertensive on hold yesterday -currently 162/95, monitor -continue lisinopril-hctz -Monitor kidney function on BMP (6) MDD (major depressive disorder): -mood stable, continue citalopram (7) PVD (peripheral vascular disease): Continue simvastatin DVT Prophylaxis: as per attending PCP: Oral Dispo: Per primary service. Patient seen in collaboration with Dr. Rosario. Please see addendum. Supervising Physician Co-Signing Physician Notes I have seen and examined the patient with our physician syrup mixer assistant and agree with the assessment and plan as above and would like to comment that patient is: s/p following procedure on 08/13/18 #1 lumbar decompression medial facetectomy foraminotomy L3-4 L4-5 L5-S1. #2 posterior spinal fusion L3-4 L4-5 L5-S1. #3 placement posterior segmental instrumentation L3-4 L4-5 L5-S1. #4 interbody fusion L5-S1. #5 placement of titanium 9 x 26 mm cage at L5-S1 per #6 placement of local autograft in the posterior lateral gutters. #7 placement infuse collagen sponge mass graft in the posterior gutters and ostial amp and interbody space. Has hypertension but currently acceptable blood pressures: continue blood pressure medication as above Physical Exam General: patient denies lightheadedness or acute pain on exam Lungs: clear to auscultation bilaterally Heart: regular rate Abdomen: soft, nontender, bowel sounds present Back: has DIRK drain Extremities: no lower extremity pain Acute blood loss anemia is acceptable given recent surgery and DIRK drain; asymptomatic anemia; continue trending CBC agree with managment recommendations for other health issues as listed above Subjective Patient seen and evaluated in room 304-1. POD #1 lumbar decompression/fusion. Returned from therapy. Ambulated unit. Has minimal back pain, RLE radicular pain has ceased. He denies f/c/s, chest pain, sob, n/v/d. Currently has crenshaw cath in place which is to be removed later this morning. Had episode last evening of indigestion, 2 hours after taking narcotics. [place] burning substernal associated with belching. [place] similar to episode in past, relieved with pepcid. Takes omeprazole at home on prn basis. Physical Exam 2 Vital Signs (Past 24 Hours): Last Vital Signs Temp 36.5 C 08/14/18 07:54 Pulse 79 08/14/18 07:54 Resp 18 08/14/18 07:54 BP 162/95 H 08/14/18 07:54 Pulse Ox 97 08/14/18 07:54 Physical Exam: Gen: Tall, Male, WD/WN, NAD, A&O x3 HEENT: Normocephalic, atraumatic, hyperpigmented face/neck, conjunctivae moist, sclerae anicteric, mucous membranes moist. Lung: Clear to Auscultation bilaterally, no wheezes/rales/rhonchi Heart: Regular rate, regular rhythm, no murmurs, rubs, or gallops Abdomen: Soft, NT, ND +BS x 4 Extremities: No edema, b/l teds in place, Lumbar dressing CDI Skin: Warm, no rash, negative turgor. : Crenshaw cath with yellow urine output Results & Data Laboratory Results Short CBC 08/14/18 Range/Units 05:39 WBC 13.33 H (4.8-10.8) K/uL Hgb 12.2 L (14.0-18.0) g/dL Hct 36.4 L (42-52) % Plt Count 248 (130-400) K/uL BMP 08/14/18 05:39 Sodium 135 L Potassium 4.0 Chloride 103 Carbon Dioxide 26 BUN 28 H Creatinine 1.07 Glucose 115 H Calcium 7.7 L
[2018-08-14] MEDS: PANTOprazole 40 MG TAB PO SCH (12:26)
--- NOTE | 2018-08-14 13:27 | Orthopedic Progress Note ---
Date of Service August 14, 2018 Assessment & Plan (1) Neurogenic claudication due to lumbar spinal stenosis: This time we will continue physical therapy monitor his DIRK output anticipate discharge home this weekend. Present on Admission?: Yes Subjective Patient's back pain is controlled leg symptoms markedly improved. Physical Exam 2 Vital Signs (Past 24 Hours): Last Vital Signs Temp 36.5 C 08/14/18 12:40 Pulse 80 08/14/18 12:40 Resp 16 08/14/18 12:40 BP 158/90 H 08/14/18 12:40 Pulse Ox 97 08/14/18 12:40 Physical Exam: Patient has good strength testing appears comfortable. He is in the chair at the bedside.
[2018-08-14] MEDS: DOCUSATE SODIUM/SENNA 50/8.6MG TAB PO SCH (20:25)
[2018-08-14] MEDS: SIMVASTATIN 40 MG TAB PO SCH (20:26)
[2018-08-15] MEDS: OXYCODONE HCL IR 5 MG TAB (IMMEDIATE RELEASE) PO PRN ×3 (00:23→12:48)
[2018-08-15] MEDS: POLYETHYLENE (MIRALAX) 17 GM PACK PO SCH ×2 (00:24→05:54)
[2018-08-15 05:57] LABS: Hematocrit (blood only) 33.9 % (42-52); Hemoglobin 11.5 g/dL (14.0-18.0); Mean Corpuscular Hgb Conc 33.9 g/dL (32-36); Mean Corpuscular Volume 95.8 fL (80-100); Mean Platelet Volume 8.8 fL (7.4-10.4); Platelet Count 224 K/uL (130-400); RDW Coefficient of Variation 13.1 % (11.5-14.5); RDW Standard Deviation 46.4 fL (36.4-46.3); Red Blood Count 3.54 M/uL (4.7-6.1); White Blood Count 7.21 K/uL (4.8-10.8)
[2018-08-15 06:27] LABS: BUN Creatinine Ratio 18.8 (10-20); Calcium 8.3 mg/dl (8.5-10.1); Creatinine Clr Calc Pharmacy 85.9 ml/min; Est GFR (African American) 91.9; Est GFR (Non-African American) 79.3; Potassium 3.7 mmol/L (3.5-5.1)
[2018-08-15] MEDS: CITALOPRAM 40 MG TAB PO SCH (07:39)
[2018-08-15] MEDS: LISINOPRIL/HCTZ 20/12.5MG 1 TAB TAB PO SCH (07:40)
[2018-08-15] MEDS: ASPIRIN 81 MG ECTAB PO SCH (07:40)
[2018-08-15] MEDS: MULTIVITAMIN TAB PO SCH (07:40)
[2018-08-15] MEDS: PANTOprazole 40 MG TAB PO SCH (07:41)
--- NOTE | 2018-08-15 11:32 | Orthopedic Progress Note ---
Date of Service August 15, 2018 Assessment & Plan (1) Neurogenic claudication due to lumbar spinal stenosis: At this time we will continue physical therapy monitor his DIRK output anticipate discharge home tomorrow. Present on Admission?: Yes Subjective Back and leg symptoms markedly improved. Physical Exam 2 Vital Signs (Past 24 Hours): Last Vital Signs Temp 36.9 C 08/15/18 07:12 Pulse 77 08/15/18 07:12 Resp 18 08/15/18 07:12 BP 117/73 08/15/18 07:12 Pulse Ox 93 08/15/18 07:12 Physical Exam: Patient says comfortable is good strength testing. He is tolerating physical therapy well.
--- NOTE | 2018-08-15 11:44 | Hospitalist Progress Note ---
Date of Service August 15, 2018 Assessment & Plan (1) Neurogenic claudication due to lumbar spinal stenosis: POD#2 s/p lumbar decompression fusion of L3-S1 by Dr. Kirkland. EBL 500ml, DIRK drain with 290 ml out over past 24 hours (sanguinous drainage) -pain/wound management per ortho -PT/OT as directed by ortho - pt ambulating well per PT notes -Monitor H&H, renal function, electrolytes -Baseline hgb of 15.6 on 07/24/18 -Continue incentive spirometry (2) Acute blood loss anemia: -H/H 12.2/36.4 yesterday, today 11.5/33.9 - baseline hgb 15 -continue to follow H/H (3) GERD (gastroesophageal reflux disease): -continue PPI daily while on anti-inflammatory and narcotics, approx 2-4 weeks - no further episodes of symptoms since evening now that pt on pantoprazole -Pepcid/[id number] prn (4) Leucocytosis: -wbc 13.3 yesterday - improved to 7.21 today -suspect was due to dexamethasone - no evidence of active infection at present (5) Hypertension: -bp improved this am and overnight with reinstitution of lisinopril-hctz -Monitor kidney function on BMP - creatinine stable (6) MDD (major depressive disorder): -mood stable, continue citalopram (7) PVD (peripheral vascular disease): Continue simvastatin DVT Prophylaxis: as per attending PCP: Oral Dispo: Per primary service. Patient seen in collaboration with Dr. Rosario. Please see addendum. Supervising Physician Co-Signing Physician Notes have seen and examined the patient with our physician assistant manager of operations and agree with the assessment and plan as above and would like to comment that patient is: s/p following procedure on 08/13/18 #1 lumbar decompression medial facetectomy foraminotomy L3-4 L4-5 L5-S1. #2 posterior spinal fusion L3-4 L4-5 L5-S1. #3 placement posterior segmental instrumentation L3-4 L4-5 L5-S1. #4 interbody fusion L5-S1. #5 placement of titanium 9 x 26 mm cage at L5-S1 per #6 placement of local autograft in the posterior lateral gutters. #7 placement infuse collagen sponge mass graft in the posterior gutters and ostial amp and interbody space. was hypertensive yesterday and current blood pressure is controlled on medications as described above Physical Exam General: patient denies lightheadedness or acute pain on exam Lungs: clear to auscultation bilaterally Heart: regular rate Abdomen: soft, nontender, bowel sounds present Back: has DIRK drain Extremities: no lower extremity pain Acute blood loss anemia is acceptable given recent surgery and DIRK drain; asymptomatic anemia; the Hgb is mildly decreased from 12.2 to 11.5. A CBC has been ordered for tomorrow agree with managment recommendations for other health issues as listed above Subjective Patient seen and evaluated in room 304-1. POD #2 lumbar decompression/fusion. Tolerating physical therapy without issue - reports ambulated with PT around the floor twice this AM. Only complaint is incisional back pain as his prior RLE radicular pain remains resolved. He denies f/c/s, chest pain, sob, n/v/d. Reports that he is urinating without issue now that Ba is removed. Had a BM around 4 am today. No additional episodes of indigestion since Saturday evening - now on pantoprazole. Still has DIRK drain in place - plan is for d/c home in AM. Physical Exam 2 Vital Signs (Past 24 Hours): Last Vital Signs Temp 36.9 C 08/15/18 07:12 Pulse 77 08/15/18 07:12 Resp 18 08/15/18 07:12 BP 117/73 08/15/18 07:12 Pulse Ox 93 08/15/18 07:12 Constitutional: WD/WN, vitals as above Eyes: + anicteric sclerae Respiratory: normal respiratory effort, lungs clear to auscultation Auscultation: no rales, no rhonchi and no wheezes Cardiovascular: Rate/Rhythm: regular rate and regular rhythm Heart Sounds: no gallop and no cardiac rub Extremities: no calf tenderness and no pedal edema Gastrointestinal (Abdomen): Inspection/Auscultation: normal bowel sounds Percussion/Palpation: abdomen soft; abdomen nontender Musculoskeletal: Bilateral LE NVI Right dorsiflexion 4/5, Left dorsiflexion 5/5, bilateral plantar flexion 5/5 Skin: no rashes, warm and dry DIRK drain in place with sanguinous drainage
[2018-08-15] MEDS: TRAMADOL HCL 50 MG TABLET PO PRN ×2 (14:32→21:06)
[2018-08-15] MEDS: SIMVASTATIN 40 MG TAB PO SCH (21:06)
[2018-08-15] MEDS: DOCUSATE SODIUM/SENNA 50/8.6MG TAB PO SCH (21:06)
[2018-08-16] MEDS: OXYCODONE HCL IR 5 MG TAB (IMMEDIATE RELEASE) PO PRN ×2 (03:12→10:32)
[2018-08-16 05:34] LABS: Basophils # (auto) 0.02 K/uL (0-0.2); Basophils % (auto) 0.3 %; Eosinophils # (auto) 0.16 K/uL (0-0.5); Eosinophils % (auto) 2.1 %; Hematocrit (blood only) 31.7 % (42-52); Hemoglobin 10.6 g/dL (14.0-18.0); Immature Granulocytes # (auto) 0.03 K/uL (0.00-0.02); Immature Granulocytes % (auto) 0.4 %; Lymphocytes # (auto) 2.06 K/uL (1.2-3.4); Lymphocytes % (auto) 26.8 %; Mean Corpuscular Hgb Conc 33.4 g/dL (32-36); Mean Corpuscular Volume 95.8 fL (80-100); Mean Platelet Volume 8.8 fL (7.4-10.4); Monocytes # (auto) 0.77 K/uL (0.11-0.59); Neutrophils # (auto) 4.64 K/uL (1.4-6.5); Neutrophils % (auto) 60.4 %; Platelet Count 208 K/uL (130-400); RDW Coefficient of Variation 13.2 % (11.5-14.5); RDW Standard Deviation 46.1 fL (36.4-46.3); Red Blood Count 3.31 M/uL (4.7-6.1); White Blood Count 7.68 K/uL (4.8-10.8)
[2018-08-16] MEDS: PANTOprazole 40 MG TAB PO SCH (08:34)
[2018-08-16] MEDS: MULTIVITAMIN TAB PO SCH (08:34)
[2018-08-16] MEDS: ASPIRIN 81 MG ECTAB PO SCH (08:34)
[2018-08-16] MEDS: LISINOPRIL/HCTZ 20/12.5MG 1 TAB TAB PO SCH (08:34)
[2018-08-16] MEDS: CITALOPRAM 40 MG TAB PO SCH (08:35)
[2018-08-16] MEDS: TRAMADOL HCL 50 MG TABLET PO PRN (09:01)
--- NOTE | 2018-08-16 09:30 | Hospitalist Progress Note ---
Date of Service August 16, 2018 Assessment & Plan (1) Neurogenic claudication due to lumbar spinal stenosis: s/p following procedure on 08/13/18 #1 lumbar decompression medial facetectomy foraminotomy L3-4 L4-5 L5-S1. #2 posterior spinal fusion L3-4 L4-5 L5-S1. #3 placement posterior segmental instrumentation L3-4 L4-5 L5-S1. #4 interbody fusion L5-S1. #5 placement of titanium 9 x 26 mm cage at L5-S1 per #6 placement of local autograft in the posterior lateral gutters. #7 placement infuse collagen sponge mass graft in the posterior gutters and ostial amp and interbody space (2) Acute blood loss anemia: baseline Hgb 15 s/p lumbar decompression fusion of L3-S1 by Dr. Kirkland; with estimated blood loss during procedure to be 500ml on this admission Hgb 12.2 to 11.5 to 10.6 DIRK drain remains on patient's back on 08/16/18; patient should have repeat labs as inpatient or outpatient setting once the DIRK drain is removed. (3) GERD (gastroesophageal reflux disease): Patient should continue PPI daily while on anti-inflammatory and narcotics , approx 2-4 weeks -Pepcid/[id number] prn (4) Leucocytosis: Leukocytosis has resolved and the WBC is stable around 7K (5) Hypertension: hypertension with blood pressure controlled today Continue lisinopril-hctz (6) MDD (major depressive disorder): -mood stable, continue citalopram (7) PVD (peripheral vascular disease): Continue simvastatin DVT Prophylaxis: as per orthopedic service Subjective Patient seen and examined at bedside. Laying on Bed. Presence of DIRK drain. Patient reports mild back discomfort. Reports that he has been ambulatory. Denies acute chest pain or shortness of breath. Denies abdominal pain or leg pain. Denies problem with using bathroom Patient reports that on time of exam that the orthopedic team had plans to take out DIRK drain today and possible discharge to home Physical Exam 2 Vital Signs (Past 24 Hours): Last Vital Signs Temp 36.5 C 08/16/18 09:17 Pulse 67 08/16/18 09:17 Resp 17 08/16/18 09:17 BP 130/83 08/16/18 09:17 Pulse Ox 96 08/16/18 09:17 Constitutional: WD/WN, vitals as above Eyes: EOM intact bilaterally ENMT: external ear and nose normal, oropharynx normal Respiratory: normal respiratory effort, lungs clear to auscultation Auscultation: no rales, no rhonchi and no wheezes Cardiovascular: Rate/Rhythm: regular rate and regular rhythm Heart Sounds: no gallop and no cardiac rub Extremities: no calf tenderness and no pedal edema Gastrointestinal (Abdomen): Inspection/Auscultation: normal bowel sounds Percussion/Palpation: abdomen soft; abdomen nontender Musculoskeletal: Head/Neck/Chest: normocephalic and head atraumatic Skin: no rashes, warm and dry Neurologic: PERRL, EOMI, accommodation nl, no face palsy, no dysarthria CN' s II-XI intact bilaterally Psychiatric: A+Ox3, euthymic affect
--- NOTE | 2018-08-16 10:16 | Discharge Summary ---
Date of Service August 16, 2018 Admission HPI Per Admitting Provider This is a 67-year-old male with chronic persistent back and bilateral leg pain. He is failed extensive course of nonoperative care and is here for surgical intervention. Principal Diagnosis Lumbar spinal stenosis with neurogenic claudication Discharge Data Allergies Allergy/AdvReac Type Severity Reaction Status Date / Time No Known Allergies Allergy Verified 07/22/18 08:54 Consultations 08/13/18 17:30 Consult Case Management - Discharge Planning Routine Consult Hospitalist Routine Procedures Performed Operation Date: 08/13/18 12:55 Actual Procedures p L3-L4, L4-L5, L5-S1 Decompression and Fusion, Interbody Fusion L5-S1; Application of Bone Morphogenetic Protein and Osteoamp(Not Applicable) - Chay Kirkland DO Ordered Studies 08/13/18 12:55 FL fluoroscopy <1hr Routine FL lumbar spine 2-3V Routine Hospital Course (1) Neurogenic claudication due to lumbar spinal stenosis: Patient underwent lumbar decompression fusion tolerated this well was taken to the orthopedic floor postoperative. Postop day #1 he was up and ambulating well. Progressive postop day #2. DIRK drain decreasing appropriately. Subsequently discharged home. Discharge orders and instructions found in the chart for further review Total Time Total Time Spent Total Time Spent (In Minutes): Not applicable Discharge Plan Discharge Items Patient Disposition: Home - Self-Care Reason For Visit: Spinal Stenosis Discharge Diagnosis: Lumbar spinal stenosis with neurogenic claudication Discharge Goals: Improve function Activity: Per 'Additional Instructions' section Non-emergency contact: Primary Care Provider Call non-emergency contact if: you have any medication questions Follow-up/Referrals: Rylan Mixon [Primary Care Provider] - Diet: Regular Addtl Provider Instructions: ACTIVITY RECOMMENDATIONS: SELF CARE INSTRUCTIONS AFTER THORACIC/LUMBAR FUSIONS 1. You may walk to your tolerance. It is good exercise for your legs and back. Expect some back and intermittent leg aches and pains. 2. You may perform "counter-top" level activities (make a sandwich, erasmo with a project, etc.). 3. No bending or lifting of more than 10 pounds or back twisting of any nature (roll like a log when turning in bed). 4. You may ride in a car for 20-30 minutes at a time. No driving until after your first visit with your doctor. 5. Frequent changes of position and restricting sitting to 30 minutes at a time will help limit the amount of back spasms and stiffness you may experience. 6. You may discontinue the use of ambulatory aids (cane, crutches, etc.) once your strength and confidence allow. 7. You may gluing machine offbearer the shower and let water strike your incision when you arrive home at least once daily. Do not take a tub bath, sit in a hot tub or go into a swimming pool until after your first recheck in the office. SPECIAL CARE INSTRUCTIONS: VERY IMPORTANT TO READ AND REVIEW A. Your surgical incision has been closed with a cosmetic suture under the skin that will dissolve in about 6 weeks. In 14 days, you can use a pair of clean scissors and cut the suture that is left outside of the skin at the ends of your incision. 1. The small skin tapes can be removed 7 days after surgery if they have not fallen off by that point. 2. You may keep the wound open to air as much as possible to promote healing after post-op day number 5 unless told otherwise by your doctor. 3. If you think the wound looks like it is becoming infected (redness or worsening drainage) and/or you are experiencing fever, chill or worsening back pain and muscle spasms, contact the office so that we may evaluate you as soon as possible. B. Complications are uncommon, but please contact us if you have any signs or symptoms of: 1. wound infection (fever higher than 102.5 degrees F, redness, separation of wound, drainage, or increasing pain from the incision) 2. blood clots in legs (pain, swelling, redness and warmth in legs) 3. urinary tract infection (fever higher than 102.5 degrees F, burning upon urination or increased frequency of urination) 4. nerve problems (inability to walk on your toes or heels, numbness, loss of bowel or bladder control) 5. any other symptoms that concern you C. Please call the office at if you have any concerns or questions about your operation or recovery. D. No smoking! Smoking drastically decreases the chance of a solid fusion. E. Do not take any anti-inflammatory medications (Indocin, Advil, Motrin, Aspirin, Naprosyn, etc.) as these may inhibit the chance of a solid fusion. Tylenol is okay to take for pain. MANAGING PAIN AFTER SPINAL SURGERY 1. Narcotic medication is intended for short-term use and will be provided for surgical pain. Surgical pain usually lasts for a period of 4-6 weeks. Narcotic medication includes Percocet, Vicodin, Darvocet, Tylenol #3 or Lortab. 2. Longer-term pain is more appropriately treated with non-narcotic medication such as Tylenol ES. 3. Muscle spasm is not appropriately treated with narcotics. Muscle relaxers such as Soma, Flexeril or Skelaxin can be used along with Tylenol ES. 4. Remember that we all live with some "aches and pains". This is not unusual or uncommon after an injury or as we get older. a. Back pain is expected and may include muscle spasms for 4 to 6 weeks after surgery. The pain should gradually improve. If the pain worsens for no apparent reason, please contact the office. b. Intermittent leg pain may also be experienced and should not be concerned about unless it worsens for no apparent reason. If so, please contact the office. 5. We will provide appropriate medication within the normal guidelines of their prescribed use. We will also be very cautious and aware of potential abuse and extended duration of patients' medication needs. a. Pain medications are for your comfort and to assist with sleep and rest so that the tissue can heal. They are not provided in order to return to normal activity and should not be used through the day. To do so or worsening pain at night can result from ongoing tissue damage and development of tolerance to the prescribed medicine. 6. Please allow 2-3 days to process refills. Prescriptions will not be mailed but must be picked up at the office. FOLLOW UP VISIT: Keep your scheduled follow-up appointment. Any questions, please call the office at . Prescriptions: New tramadol 50 mg Tablet 50 mg PO Q4H PRN (Reason: Pain, Mild) Qty: 30 RF: 0 oxycodone 5 mg Tablet 5 mg PO Q4H PRN (Reason: Pain (Scale Score 7-10)) Qty: 30 RF: 0 Continue tramadol 50 mg Tablet 50 mg PO Q6H PRN (Reason: Pain) RF: 0 ibuprofen 200 mg Tablet 800 mg PO QID PRN (Reason: Pain) RF: 0 citalopram 40 mg Tablet 40 mg PO QAM RF: 0 aspirin 81 mg Tablet,Delayed Release (Dr/Ec) 81 mg PO QAM RF: 0 albuterol sulfate 90 mcg/actuation Hfa Aerosol Inhaler 1 puff INHALATION Q6H PRN (Reason: Wheezing) RF: 0 simvastatin 40 mg tablet 40 mg PO HS RF: 0 lisinopril-hydrochlorothiazide 20-12.5 mg Tablet 1 tab PO DAILY RF: 0 Visit Report Forms: [facility] Stand-Alone Forms: [facility], Opio[facility] Discharge Orders: Discharge Order (Routine); Ordered 08/16/18 Ordered By: Chay Kirkland Admission Data Admit Date/Time: 08/13/18 16:55 Attending Provider: Chay Kirkland Admit Provider: Chay Kirkland Primary Care Provider: Rylan Mixon Other Providers: Pito Rosario Service: Surgical Services Other Interventions: Discharge Summary Assessment (RN) Last Done: 08/16/18 09:17
== END 2018-08-16 10:55 | disposition home or self-care (01) | DRG 454 ==
LOC: ASU 10:23 → 3E 16:55